=== PATIENT | female | born 1965 | race African-American/Black ===

== ENCOUNTER 2017-02-02 06:48 | Emergency (ER) | payer OTHER ==
[~2017-02-02] VITALS: Ht 165.1 cm; Wt 94.8 kg
--- NOTE | 2017-02-02 07:32 | ED GI/GU/ABDOMINAL COMPLAINT ---
History of Present Illness General Chief Complaint: Abdominal Pain/Flank Pain Stated Complaint: LLQ PAIN Source: patient, old records Exam Limitations: no limitations Vital Signs & Intake/Output Vital Signs & Intake/Output Vital Signs Date Time Temp Pulse Resp B/P B/P Pulse O2 O2 Flow FiO2 Mean Ox Delivery Rate 02/02 1129 80 18 111/72 99 Room Air 02/02 1024 Room Air 02/02 0722 97.2 82 18 129/82 98 Room Air Allergies Coded Allergies: Sulfa (Sulfonamide Antibiotics) (Intermediate, HIVES 02/02/17) Uncoded Allergies: PCN (Intermediate, HIVES 02/02/17) Reconcile Medications Atorvastatin Calcium (Unknown Strength) TABLET (Unknown Dose) PO DAILY CHOLESTEROL (Reported) Ciprofloxacin HCl (Cipro) 250 MG TABLET 1 TAB PO BID DIVERTICULITIS Insulin Glargine,Hum.rec.anlog (Lantus Solostar) 100 UNIT/ML (3 ML) INSULN.PEN 10 UNIT SC QPM DIABETES (Reported) Metformin HCl 1,000 MG TABLET 1 TAB PO BID DIABETES (Reported) Metronidazole (Flagyl) 500 MG TABLET 1 TAB PO BID DIVERTICULITIS Oxycodone HCl/Acetaminophen (Percocet 5-325 MG Tablet) 5 MG-325 MG TABLET 1-2 TAB PO Q6P PRN PAIN Triage Note: C/O LLQ ABDOMINAL PAIN SINCE YESTERDAY AM. DENIES NAUSEA, VOMITING OR DIARRHEA. STATES SHE HAS BEEN URINATING FREQUENTLY. [facility]. Triage Nurses Notes Reviewed? yes ? N Is pt currently ? No HPI: Patient presents with a crampy sensation in her left lower quadrant as well as increased urinary frequency, over and urgency since yesterday. The pain started gradually and has increased to 6 out of 10. There is no nausea or vomiting. There is no radiation of the pain. No aggravating or mitigating factors. She denies any fevers or chills. Past History Travel History Traveled to [place] past 21 day No Medical History Any Pertinent Medical History? see below for history Cardiovascular: hyperlipidemia Endocrine: diabetes Surgical History Surgical History: non-contributory Psychosocial History What is your primary language Frisian Tobacco Use: Never used ETOH Use: denies use Illicit Drug Use: denies illicit drug use Family History Hx Contributory? No Review of Systems Review of Systems Constitutional: Reports: no symptoms. EENTM: Reports: no symptoms. Respiratory: Reports: no symptoms. Cardiovascular: Reports: no symptoms. GI: Reports: see HPI, abdominal pain. Genitourinary: Reports: see HPI, dysuria, frequency, hesitation, urgency. Musculoskeletal: Reports: no symptoms. Skin: Reports: no symptoms. Neurological/Psychological: Reports: no symptoms. Hematologic/Endocrine: Reports: no symptoms. Immunologic/Allergic: Reports: no symptoms. All Other Systems: Reviewed and Negative Physical Exam Physical Exam General Appearance: well developed/nourished, alert, awake, mild distress Head: atraumatic Eyes: Bilateral: PERRL, EOMI. Ears, Nose, Throat, Mouth: hearing grossly normal, moist mucous membrane Neck: normal inspection, supple, full range of motion Respiratory: normal breath sounds, chest non-tender, no respiratory distress, lungs clear Cardiovascular: regular rate/rhythm, normal peripheral pulses Gastrointestinal: normal bowel sounds, soft, no organomegaly, tenderness (LLQ), NO REBOUND OR GUARDING Back: normal inspection, normal range of motion, NO CVA TENDERNESS Extremities: normal range of motion Neurologic/Psych: no motor/sensory deficits, awake, alert, oriented x 3, normal gait, normal mood/affect Skin: intact, normal color, warm/dry Core Measures ACS in differential dx? No Severe Sepsis Present: No Septic Shock Present: No Progress Differential Diagnosis: diverticulitis, kidney stone, UTI/pyelo Plan of Care: Orders Procedure Date/time Status Add-on Test (ER Only) 02/02 0854 Active CULTURE,URINE 02/02 0717 Active URINALYSIS 02/02 0717 Complete HUMAN BETA HCG SCREEN 02/02 0717 Complete COMPREHENSIVE METABOLIC PANEL 02/02 0717 Complete CBC WITHOUT DIFFERENTIAL 02/02 0717 Complete Laboratory Tests 02/02/17 0803: Anion Gap 9, Estimated GFR > 60, BUN/Creatinine Ratio 13.8, Glucose 184 H, Calcium 9.7, Total Bilirubin 1.5 H, AST 18, ALT 33, Alkaline Phosphatase 69, Total Protein 7.5, Albumin 4.3, Globulin 3.2, Albumin/Globulin Ratio 1.3, Total Beta HCG NEGATIVE, CBC w Diff NO MAN DIFF REQ, RBC 4.41, MCV 89.7, MCH 29.3, RDW 13.2, MPV 7.9, Gran % 64.2, Lymphocytes % 28.1, Monocytes % 7.3, Eosinophils % 0.1, Basophils % 0.3, Absolute Granulocytes 4.7, Absolute Lymphocytes 2.0, Absolute Monocytes 0.5, Absolute Eosinophils 0, Absolute Basophils 0, PUBS MCHC 32.7 L, Urinalysis LIGHT H, Urine Color YEL, Urine Clarity HAZY H, Urine pH 6.0, Ur Specific Loring 1.025, Urine Protein TRACE H, Urine Ketones NEG, Urine Nitrite NEG, Urine Bilirubin NEG, Urine Urobilinogen 0.2, Ur Leukocyte Esterase NEG, Ur Microscopic SEDIMENT EXAMINED, Urine RBC 1-3, Urine WBC 3-5 H, Ur Epithelial Cells MANY H, Urine Bacteria MANY H, Urine Mucus FEW, Urine Hemoglobin TRACE-INTACT, Urine Glucose 250 H Microbiology 02/02 717 URINE ROUT: Urine Culture - RECD Diagnostic Imaging: Viewed by Me: CT Scan. Discussed w/RAD: CT Scan. Radiology Impression: PATIENT: JOSE STRATTON PRESENT AGE: 51 PATIENT ACCOUNT NO: [id number] : 67 LOCATION: [facility] ORDERING PHYSICIAN: TATUM GONZALES MD SERVICE DATE: 02/02/17 EXAM TYPE: CAT - CT ABD & PELVIS W/O IV CONTRAS EXAMINATION: CT ABDOMEN AND PELVIS WITHOUT CONTRAST CLINICAL INFORMATION: Left lower quadrant pain. COMPARISON: None TECHNIQUE: Multidetector volumetric imaging was performed from the superior aspect of the liver through the pubic symphysis. Sagittal and coronal reformatted images were obtained on the technologist's workstation. DLP: 930 mGy -cm FINDINGS: LUNG BASES: The visualized lung bases are unremarkable. LIVER, GALLBLADDER, AND BILIARY TREE: The liver is normal in size, shape, and attenuation. No focal hepatic lesion or biliary ductal dilatation is present. Calcifications are seen along the wall of the gallbladder. Given the positioning and appearance, these calcifications appear to be within the wall rather than represent calculi. No definite calculi are seen. No wall thickening or pericholecystic fluid. PANCREAS: Unremarkable. SPLEEN: Unremarkable. ADRENAL GLANDS: Unremarkable. KIDNEYS AND URETERS: The kidneys are normal in size, shape , and attenuation. No hydronephrosis, hydroureter, or calculi seen. No perinephric stranding. BLADDER: Unremarkable. GASTROINTESTINAL TRACT: The stomach and small bowel are unremarkable. No dilated loops of bowel or evidence of obstruction. There is colonic diverticulosis. There is wall thickening at the distal descending colon with associated adjacent inflammatory change, consistent with diverticulitis. Normal appendix. No free air or free fluid. ABDOMINAL WALL: No significant hernia is appreciated. LYMPH NODES: Normal. VASCULAR: Scattered atherosclerotic calcification. PELVIC VISCERA: The uterus and adnexa are unremarkable. OSSEOUS STRUCTURES: No acute or suspicious osseous abnormality. Degenerative changes of the spine. IMPRESSION: 1. Diverticulitis of the distal descending colon. No free air or fluid collection. 2. Gallbladder wall calcifications. 3. No hydronephrosis or nephrolithiasis. DICTATED BY: TOMAS ARIAS,TARAS DATE/TIME DICTATED:02/02/171022 SPRING REPAIRER HELPER HAND: BARB DATE/TIME TRANSCRIBED:02/02/171022 CONFIDENTIAL, DO NOT COPY WITHOUT APPROPRIATE AUTHORIZATION. <Electronically signed in Other Vendor System> SIGNED BY: TOMAS ARIAS,TARAS 02/02/17 1030 Initial ED EKG: none Comments: Laboratory data and CAT scan results were discussed with the patient. Patient given a dose of IV antibiotics and then will be stable for discharge. Patient promises to return if the pain worsens, she begins vomiting or for any concerns. Departure Departure Disposition: HOME OR SELF CARE Condition: Stable Clinical Impression Primary Impression: Diverticulitis Referrals: PATIENT HAS NO PRIMARY CARE DR (PCP/Family) Additional Instructions: Return if symptoms worsen, you began vomiting or for any concerns. Departure Forms: Customer Survey General Discharge Information Prescriptions: Current Visit Scripts Ciprofloxacin HCl (Cipro) 1 TAB PO BID #14 TAB Metronidazole (Flagyl) 1 TAB PO BID #14 TAB Oxycodone HCl/Acetaminophen (Percocet 5-325 MG Tablet) 1-2 TAB PO Q6P PRN PAIN #20 TAB
[2017-02-02 08:36] LABS: ABSOLUTE BASOPHIL COUNT 0 /CUMM (0.0-0.2); ABSOLUTE EOSINOPHIL COUNT 0 /CUMM (0.0-0.7); ABSOLUTE GRANULOCYTE CT 4.7 /CUMM (1.4-6.5); ABSOLUTE MONOCYTE COUNT 0.5 /CUMM (0.10-0.60); BASOPHIL % 0.3 % (0.0-2.0); EOSINOPHIL % 0.1 % (0-5); GRANULOCYTE % 64.2 % (42.2-75.2); HEMATOCRIT 39.6 % (37-47); MEAN CORPUSCULAR HGB 29.3 PG (27.0-31.0); MEAN CORPUSCULAR HGB CONC 32.7 G/DL (33.0-37.0); MEAN CORPUSCULAR VOLUME 89.7 FL (81.0-99.0); MEAN PLATELET VOLUME 7.9 FL (7.4-10.4); PLATELET COUNT 291 /CUMM (130-400); RBC DISTRIBUTION WIDTH 13.2 % (11.5-14.5); RED BLOOD CELL CT 4.41 /CUMM (4.20-5.40); WHITE BLOOD CELL COUNT 7.3 /CUMM (4.8-10.8)
[2017-02-02] MEDS ORDERED: METFORMIN HCL1000 M1 PO (08:57)
[2017-02-02] MEDS ORDERED: ATORVASTATIN CA20 M1 PO (08:58)
[2017-02-02] MEDS ORDERED: LANTUS SOL100 UNIT/1 SC (08:58)
--- NOTE | 2017-02-02 10:30 | CT SCAN REPORT ---
EXAMINATION: CT ABDOMEN AND PELVIS WITHOUT CONTRAST CLINICAL INFORMATION: Left lower quadrant pain. COMPARISON: None TECHNIQUE: Multidetector volumetric imaging was performed from the superior aspect of the liver through the pubic symphysis. Sagittal and coronal reformatted images were obtained on the technologist's workstation. DLP: 930 mGy-cm FINDINGS: LUNG BASES: The visualized lung bases are unremarkable. LIVER, GALLBLADDER, AND BILIARY TREE: The liver is normal in size, shape, and attenuation. No focal hepatic lesion or biliary ductal dilatation is present. Calcifications are seen along the wall of the gallbladder. Given the positioning and appearance, these calcifications appear to be within the wall rather than represent calculi. No definite calculi are seen. No wall thickening or pericholecystic fluid. PANCREAS: Unremarkable. SPLEEN: Unremarkable. ADRENAL GLANDS: Unremarkable. KIDNEYS AND URETERS: The kidneys are normal in size, shape, and attenuation. No hydronephrosis, hydroureter, or calculi seen. No perinephric stranding. BLADDER: Unremarkable. GASTROINTESTINAL TRACT: The stomach and small bowel are unremarkable. No dilated loops of bowel or evidence of obstruction. There is colonic diverticulosis. There is wall thickening at the distal descending colon with associated adjacent inflammatory change, consistent with diverticulitis. Normal appendix. No free air or free fluid. ABDOMINAL WALL: No significant hernia is appreciated. LYMPH NODES: Normal. VASCULAR: Scattered atherosclerotic calcification. PELVIC VISCERA: The uterus and adnexa are unremarkable. OSSEOUS STRUCTURES: No acute or suspicious osseous abnormality. Degenerative changes of the spine. IMPRESSION: 1. Diverticulitis of the distal descending colon. No free air or fluid collection. 2. Gallbladder wall calcifications. 3. No hydronephrosis or nephrolithiasis.
[2017-02-02] MEDS ORDERED: CIPRO250 M1 PO (11:07)
[2017-02-02] MEDS ORDERED: FLAGYL500 MG PO (11:07)
[2017-02-02] MEDS ORDERED: PERCOCET 5-3251 EACH PO (11:07)
[2017-02-02 11:29] VITALS: BP 111/72
== END 2017-02-02 11:30 ==
LOC: ERH 06:48
PROVIDERS: Emergency Medicine
DX: K57.92 Diverticulitis of intestine, part unspecified, without perforation or abscess without bleeding (principal)
CPT/HCPCS: 74176; 81001; 87086; 96361; 96374; J1885

== ENCOUNTER 2018-03-18 15:56 | Emergency (ER) | payer OTHER ==
[~2018-03-18] VITALS: Ht 165.1 cm; Wt 94.8 kg
[~2018-03-18 15:56] MED LIST: ATORVASTATIN CA20 M1 PO; ATORVASTATIN CA40 M1 PO; BENZONATATE200 M1 PO; CIPRO250 M1 PO; FLAGYL500 MG PO; IBUPROFEN800 M1 PO; LANTUS SOL100 UNIT/1 SC; METFORMIN HCL1000 M1 PO; PERCOCET 5-3251 EACH PO; PROVENTIL HFA6.7 GM INH; TAMIFLU75 M1 PO
[2018-03-18 16:28] LABS: ABSOLUTE BASOPHIL COUNT 0 /CUMM (0.0-0.2); ABSOLUTE EOSINOPHIL COUNT 0 /CUMM (0.0-0.7); ABSOLUTE GRANULOCYTE CT 6.5 /CUMM (1.4-6.5); ABSOLUTE LYMPH COUNT 3.3 /CUMM (1.2-3.4); ABSOLUTE MONOCYTE COUNT 0.6 /CUMM (0.10-0.60); BASOPHIL % 0.2 % (0.0-2.0); EOSINOPHIL % 0.2 % (0-5); GRANULOCYTE % 62.3 % (42.2-75.2); HEMATOCRIT 41.3 % (37-47); MEAN CORPUSCULAR HGB 28.9 PG (27.0-31.0); MEAN CORPUSCULAR HGB CONC 32.7 G/DL (33.0-37.0); MEAN CORPUSCULAR VOLUME 88.6 FL (81.0-99.0); MEAN PLATELET VOLUME 7.5 FL (7.4-10.4); PLATELET COUNT 329 /CUMM (130-400); RBC DISTRIBUTION WIDTH 13.6 % (11.5-14.5); RED BLOOD CELL CT 4.66 /CUMM (4.20-5.40); WHITE BLOOD CELL COUNT 10.4 /CUMM (4.8-10.8)
[2018-03-18] MEDS ORDERED: METFORMIN HCL500 M4 PO (18:31)
[2018-03-18] MEDS ORDERED: NYSTATIN15 G1 TOP (18:32)
--- NOTE | 2018-03-18 20:27 | ED GI/GU/ABDOMINAL COMPLAINT ---
History of Present Illness General Chief Complaint: Abdominal Pain/Flank Pain Stated Complaint: LOWER LEFT SIDED ABD PAIN Source: patient Exam Limitations: no limitations Vital Signs & Intake/Output Vital Signs & Intake/Output Vital Signs Date Time Temp Pulse Resp B/P B/P Pulse O2 O2 Flow FiO2 Mean Ox Delivery Rate 03/18 2304 96.0 79 18 137/81 96 Room Air 03/18 2107 98.2 90 16 152/78 97 Room Air 03/18 1826 98.5 84 18 133/69 100 Room Air 03/18 1805 Room Air 03/18 1609 98.2 87 18 156/106 98 Room Air ED Intake and Output 03/19 0000 03/18 1200 Intake Total Output Total Balance Patient 209 lb Weight Allergies Coded Allergies: Sulfa (Sulfonamide Antibiotics) (Intermediate, HIVES 07/09/17) Penicillins (hives 03/18/18) tramadol (UPSET STOMACH 03/18/18) Reconcile Medications Atorvastatin Calcium 40 MG TABLET 1 TAB PO DAILY CHOLESTROL (Reported) Ciprofloxacin HCl (Cipro) 500 MG TABLET 1 TAB PO BID diverticuloitis Insulin Glargine,Hum.rec.anlog (Lantus Solostar) 100 UNIT/ML (3 ML) INSULN.PEN 10 UNIT SC QPM DIABETES (Reported) Metformin HCl (Metformin HCl ER) 500 MG TAB.ER.24H 2 TAB PO BID DM (Reported) Metronidazole (Flagyl) 500 MG TABLET 1 TAB PO TID DIVERTICULITIS Nystatin 100,000 UNIT/GRAM CREAM..G. 1 HATTIE TOP BID BUTTOCKS (Reported) apply to affected area(s) Ondansetron (Zofran Odt) 4 MG TAB.RAPDIS 1 TAB SL TID NAUSEA Oxycodone HCl/Acetaminophen (Percocet 5-325 MG Tablet) 5 MG-325 MG TABLET 1-2 TAB PO BID PAIN Triage Note: LLQ ABD PAIN SINCE YESTERDAY AM, CONSTANT WITH PERIODS OF EXACERBATION. REPORTS IT HAS BEEN WORSENING. DENIES BLACK OR BLOODY STOOLS. +N/-V. AFEBRILE. PAIN 06/30 Triage Nurses Notes Reviewed? yes ? N Is pt currently ? No Onset: Abrupt Duration: day(s): Timing: recent history Quality/Severity: moderate, sharpness, severe Location: left lower quadrant Radiation: no radiation Activities at Onset: none No Modifying Factors: none HPI: 52-year-old female comes into the emergency room complaints of left lower abdominal pain. She denies any fever chills vomiting but some associated nausea. Denies any changes in bowel movement or blood in her stool. Some mild burning at times with urination. She comes in for further evaluation. Nothing seems to make the symptoms better. (Blair Rivas) Past History Travel History Traveled to [place] past 21 day No Medical History Any Pertinent Medical History? see below for history Neurological: NONE EENT: NONE Cardiovascular: hyperlipidemia Respiratory: NONE Gastrointestinal: NONE Hepatic: NONE Renal: NONE Musculoskeletal: NONE Psychiatric: NONE Endocrine: diabetes Surgical History Surgical History: non-contributory Psychosocial History What is your primary language Ukrainian Tobacco Use: Never used ETOH Use: denies use Illicit Drug Use: denies illicit drug use Family History Hx Contributory? No (Blair Rivas) Review of Systems Review of Systems Constitutional: Reports: no symptoms. EENTM: Reports: no symptoms. Respiratory: Reports: no symptoms. Cardiovascular: Reports: no symptoms. GI: Reports: see HPI. Genitourinary: Reports: see HPI. Musculoskeletal: Reports: no symptoms. Skin: Reports: no symptoms. Neurological/Psychological: Reports: no symptoms. Hematologic/Endocrine: Reports: no symptoms. Immunologic/Allergic: Reports: no symptoms. All Other Systems: Reviewed and Negative (Blair Rivas) Physical Exam Physical Exam General Appearance: well developed/nourished, no apparent distress, alert, awake Head: atraumatic Eyes: Bilateral: normal appearance. Ears, Nose, Throat, Mouth: hearing grossly normal, moist mucous membrane Neck: normal inspection Respiratory: no respiratory distress Cardiovascular: regular rate/rhythm Gastrointestinal: soft, tenderness (LLQ, ), NO GUARDING/REBOUND TENDERNESS Back: normal inspection Extremities: normal range of motion Neurologic/Psych: awake, alert, oriented x 3 Skin: intact, normal color Core Measures ACS in differential dx? No Sepsis Present: No Sepsis Focused Exam Completed? No (Blair Rivas) Progress Differential Diagnosis: appendicitis, biliary colic, bowel obstruction, cholecystitis, diverticulitis, gastritis, kidney stone, SBO, UTI/pyelo Plan of Care: Orders Procedure Date/time Status URINALYSIS 03/18 1607 Complete TROPONIN LEVEL 03/18 1607 Complete LIPASE 03/18 1607 Complete COMPREHENSIVE METABOLIC PANEL 03/18 1607 Complete CBC WITHOUT DIFFERENTIAL 03/18 1607 Complete Laboratory Tests 03/18/18 2035: Urine Color YEL, Urine Clarity CLEAR, Urine pH 6.0, Ur Specific Powell >= 1.030 , Urine Protein NEG, Urine Ketones NEG, Urine Nitrite NEG, Urine Bilirubin NEG, Urine Urobilinogen 0.2, Ur Leukocyte Esterase NEG, Ur Microscopic EXAM NOT REQUIRED, Urine Hemoglobin NEG, Urine Glucose NEG 03/18/18 1615: Anion Gap 12, Estimated GFR 53 L, BUN/Creatinine Ratio 11.8, Glucose 172 H, Calcium 9.9, Total Bilirubin 1.1, AST 19, ALT 40, Alkaline Phosphatase 81, Troponin I < 0.01, Total Protein 7.7, Albumin 4.4, Globulin 3.3, Albumin/ Globulin Ratio 1.3, Lipase 73, CBC w Diff NO MAN DIFF REQ, RBC 4.66, MCV 88.6, MCH 28.9, MCHC 32.7 L, RDW 13.6, MPV 7.5, Gran % 62.3, Lymphocytes % 31.9, Monocytes % 5.4, Eosinophils % 0.2, Basophils % 0.2, Absolute Granulocytes 6.5, Absolute Lymphocytes 3.3, Absolute Monocytes 0.6, Absolute Eosinophils 0, Absolute Basophils 0 Diagnostic Imaging: Viewed by Me: CT Scan. Discussed w/RAD: CT Scan. Radiology Impression: PATIENT: JOSE STRATTON PRESENT AGE: 52 PATIENT ACCOUNT NO: [id number] : 67 LOCATION: [facility] ORDERING PHYSICIAN: John Paul DAVIS SERVICE DATE: 03/18/18 EXAM TYPE: CAT - CT ABD & PELVIS W IV CONTRAST EXAMINATION: CT ABDOMEN AND PELVIS WITH CONTRAST CLINICAL INFORMATION: Abdominal pain. COMPARISON: 02/02/2017 CT scan. TECHNIQUE: Multidetector volumetric imaging was performed of the abdomen and pelvis following IV administration of 95 mL of Optiray 320 intravenous contrast. Sagittal and coronal reformatted images were obtained on the technologist's workstation. DLP: 1169.72 mGy-cm FINDINGS: LUNG BASES: The visualized lung bases are unremarkable. LIVER, GALLBLADDER, AND BILIARY TREE: The liver is normal in size, shape, and attenuation. There is mild dilatation of intrahepatic bile ducts. The CBD is also prominent, measures about 12 mm at the level of head of pancreas. No radiodense CBD stone is seen. There is also mild prominence of the main pancreatic duct. The gallbladder is distended. Linear calcifications of the gallbladder wall represent porcelain gallbladder. There is no CT evidence of acute cholecystitis. PANCREAS: Mild prominence of the main pancreatic duct up to 4 mm in transverse diameter is noted. This is a new finding. No definite pancreatic mass is seen. No peripancreatic inflammatory change. SPLEEN: Unremarkable. ADRENAL GLANDS: Unremarkable. KIDNEYS AND URETERS: The kidneys are normal in size, shape, and attenuation. No hydronephrosis, hydroureter, or calculi seen. No perinephric stranding. BLADDER: The urinary bladder is empty. GASTROINTESTINAL TRACT: The stomach, duodenum and small bowel loops are unremarkable. Diverticular disease of the colon noted. There is moderate pericolonic fat stranding in the region of distal descending colon, adjacent to multiple diverticuli. The findings represent acute diverticulitis. There is no pericolonic fluid collection or CT sign of microperforation. No free fluid in the abdomen or pelvis. No intra-abdominal free air. The appendix is visualized and without evidence of acute appendicitis. ABDOMINAL WALL: No significant hernia is appreciated. LYMPH NODES: Normal. VASCULAR: Unremarkable. PELVIC VISCERA: The uterus and adnexa are unremarkable. OSSEOUS STRUCTURES: Unremarkable. IMPRESSION: 1. Acute diverticulitis of distal descending colon without evidence of perforation or pericolonic collection. 2. Porcelain gallbladder. 3. Mild dilatation of the intrahepatic bile ducts, CBD and the main pancreatic duct without evidence of radiodense CBD stone. Possibility of an obstructing lesion at the level of the ampulla of Vater is not excluded. Further clinical evaluation and, if indicated, ERCP or MRCP is suggested. DICTATED BY: Yary Manuel MD DATE/TIME DICTATED:03/18/182155 SECURITY SERVICES SPECIALIST:BARB DATE/TIME TRANSCRIBED:03/18/182155 CONFIDENTIAL, DO NOT COPY WITHOUT APPROPRIATE AUTHORIZATION. <Electronically signed in Other Vendor System> SIGNED BY: Yary Manuel MD 03/18/18 7619 Initial ED EKG: none (Blair Rivas) Departure Departure Disposition: HOME OR SELF CARE Condition: Stable Clinical Impression Primary Impression: Acute diverticulitis Referrals: Unknown (PCP/Family) Additional Instructions: Take ciprofloxacin and Flagyl as prescribed. Follow-up with primary care doctor. Follow-up with acute care occupational therapist provided. Clear liquid diet for the next 24 hours. Return if any other concerns. Denies any fever chills vomiting increased pain. Please go over all results of today's visit with your primary care doctor. Contact your primary care doctor to let them know you were here in the emergency room. There may be nonspecific findings which may not be related to your visit today here in the emergency room but may require further evaluation and chronic monitoring by your primary care doctor. If you had a laceration today the chance of foreign body always remains. You should follow-up with your primary care doctor for recheck in 3-5 days for a wound check. If you had an x-ray done there is a chance that a fracture could have been missed on initial read and you should follow-up with your primary care doctor for repeat x-rays if symptoms persist. If your blood pressure was elevated here in the emergency room please have rechecked by [facility] primary care doctor within the next 48. If you were prescribed a narcotic here in the emergency room or any type of controlled substances you're not allowed to drive while taking this medication or operate any type of heavy machinery. Narcotics can make you feel lightheaded dizziness nausea and can cause constipation. You may need to pick up truck driver a stool softener. Thank you for choosing [facility] emergency room. Please return to the emergency room immediately if you have any other concerns worsening of symptoms. Departure Forms: Customer Survey General Discharge Information Prescriptions: Current Visit Scripts Ciprofloxacin HCl (Cipro) 1 TAB PO BID #20 TAB Metronidazole (Flagyl) 1 TAB PO TID #30 TAB Ondansetron (Zofran Odt) 1 TAB SL TID #10 TAB Oxycodone HCl/Acetaminophen (Percocet 5-325 MG Tablet) 1-2 TAB PO BID #10 TAB Comments 03/19/2018 9:07:34 AM Patient currently has no abdominal pain and right upper quadrant. No suspicion for any type of acute gallbladder issue despite the common bile ducts being slightly dilated on the CT scan. Normal liver function tests. Symptoms most consistent with diverticulitis. Follow-up with PCP. NO Evidence of perforation or abscess. Afebrile. Started on oral antibiotics. Referred to a acute care occupational therapist. (Blair Rivas) PA/DETAIL MAKER AND FITTER Co-Sign Statement Statement: ED Attending supervision documentation- [x] I have reviewed the ED Record and agree with the PA's/DETAIL MAKER AND FITTER's documentation. (Shara ARIAS,Adán Brantley)
--- NOTE | 2018-03-18 22:32 | CT SCAN REPORT ---
EXAMINATION: CT ABDOMEN AND PELVIS WITH CONTRAST CLINICAL INFORMATION: Abdominal pain. COMPARISON: 02/02/2017 CT scan. TECHNIQUE: Multidetector volumetric imaging was performed of the abdomen and pelvis following IV administration of 95 mL of Optiray 320 intravenous contrast. Sagittal and coronal reformatted images were obtained on the technologist's workstation. DLP: 1169.72 mGy-cm FINDINGS: LUNG BASES: The visualized lung bases are unremarkable. LIVER, GALLBLADDER, AND BILIARY TREE: The liver is normal in size, shape, and attenuation. There is mild dilatation of intrahepatic bile ducts. The CBD is also prominent, measures about 12 mm at the level of head of pancreas. No radiodense CBD stone is seen. There is also mild prominence of the main pancreatic duct. The gallbladder is distended. Linear calcifications of the gallbladder wall represent porcelain gallbladder. There is no CT evidence of acute cholecystitis. PANCREAS: Mild prominence of the main pancreatic duct up to 4 mm in transverse diameter is noted. This is a new finding. No definite pancreatic mass is seen. No peripancreatic inflammatory change. SPLEEN: Unremarkable. ADRENAL GLANDS: Unremarkable. KIDNEYS AND URETERS: The kidneys are normal in size, shape, and attenuation. No hydronephrosis, hydroureter, or calculi seen. No perinephric stranding. BLADDER: The urinary bladder is empty. GASTROINTESTINAL TRACT: The stomach, duodenum and small bowel loops are unremarkable. Diverticular disease of the colon noted. There is moderate pericolonic fat stranding in the region of distal descending colon, adjacent to multiple diverticuli. The findings represent acute diverticulitis. There is no pericolonic fluid collection or CT sign of microperforation. No free fluid in the abdomen or pelvis. No intra-abdominal free air. The appendix is visualized and without evidence of acute appendicitis. ABDOMINAL WALL: No significant hernia is appreciated. LYMPH NODES: Normal. VASCULAR: Unremarkable. PELVIC VISCERA: The uterus and adnexa are unremarkable. OSSEOUS STRUCTURES: Unremarkable. IMPRESSION: 1. Acute diverticulitis of distal descending colon without evidence of perforation or pericolonic collection. 2. Porcelain gallbladder. 3. Mild dilatation of the intrahepatic bile ducts, CBD and the main pancreatic duct without evidence of radiodense CBD stone. Possibility of an obstructing lesion at the level of the ampulla of Vater is not excluded. Further clinical evaluation and, if indicated, ERCP or MRCP is suggested.
[2018-03-18] MEDS ORDERED: PERCOCET 5-3251 EACH PO (22:43)
[2018-03-18] MEDS ORDERED: CIPRO500 M1 PO (22:43)
[2018-03-18] MEDS ORDERED: FLAGYL500 MG PO (22:43)
[2018-03-18] MEDS ORDERED: ZOFRAN ODT4 M1 SL (22:43)
[2018-03-18 23:04] VITALS: BP 137/81
== END 2018-03-18 23:14 ==
LOC: ERH 15:56
PROVIDERS: Physician Assistant Medical
DX: K57.92 Diverticulitis of intestine, part unspecified, without perforation or abscess without bleeding (principal)
CPT/HCPCS: 74177; 81003; 96374; 96375; 96376; J1885; J2405

== ENCOUNTER 2018-04-29 10:44 | Emergency (ER) | payer OTHER ==
[~2018-04-29] VITALS: Ht 165.1 cm; Wt 94.8 kg
[~2018-04-29 10:44] MED LIST changes: +CIPRO500 M1 PO; +METFORMIN HCL500 M4 PO; +NYSTATIN15 G1 TOP; +ZOFRAN ODT4 M1 SL
--- NOTE | 2018-04-29 11:01 | ED GENERAL ADULT ---
History of Present Illness General Chief Complaint: General Adult Stated Complaint: UPPER AND LOWER BACK PAIN, X 3 DAYS Source: patient, old records Exam Limitations: no limitations Vital Signs & Intake/Output Vital Signs & Intake/Output Vital Signs Date Time Temp Pulse Resp B/P B/P Pulse O2 O2 Flow FiO2 Mean Ox Delivery Rate 04/29 1230 98.6 98 18 148/80 99 Room Air 04/29 1104 Room Air 04/29 1048 98.6 103 18 152/85 98 Room Air Allergies Coded Allergies: Sulfa (Sulfonamide Antibiotics) (Intermediate, HIVES 07/09/17) Penicillins (hives 03/18/18) tramadol (UPSET STOMACH 03/18/18) Reconcile Medications Atorvastatin Calcium 40 MG TABLET 1 TAB PO DAILY CHOLESTROL (Reported) Ciprofloxacin HCl (Cipro) 500 MG TABLET 1 TAB PO BID diverticuloitis Cyclobenzaprine HCl 5 MG TABLET 1 TAB PO TIDPRN PRN LOW BACK PAIN / MUSCLE SPASM Ibuprofen 800 MG TABLET 1 TAB PO TID PRN LOW BACK PAIN Insulin Glargine,Hum.rec.anlog (Lantus Solostar) 100 UNIT/ML (3 ML) INSULN.PEN 10 UNIT SC QPM DIABETES (Reported) Metformin HCl (Metformin HCl ER) 500 MG TAB.ER.24H 2 TAB PO BID DM (Reported) Metronidazole (Flagyl) 500 MG TABLET 1 TAB PO TID DIVERTICULITIS Nystatin 100,000 UNIT/GRAM CREAM..G. 1 HATTIE TOP BID BUTTOCKS (Reported) apply to affected area(s) Ondansetron (Zofran Odt) 4 MG TAB.RAPDIS 1 TAB SL TID NAUSEA Oxycodone HCl/Acetaminophen (Percocet 5-325 MG Tablet) 5 MG-325 MG TABLET 1-2 TAB PO BID PAIN Triage Note: 52 YO FEMALE TO TRIAGE FOR EVAL OF LOWER AND UPPER BACK SINCE MONDAY. UNSURE IF INJURY OCCURED TO BACK. STATES HAS BEEN USING TOPICAL PAIN CREAMS WITHOUT RELIEF. STATES URINE IS MORE FREQUENT THEN USUAL, DENIES BURNING/PAIN WITH URINATION. Triage Nurses Notes Reviewed? yes HPI: 52-year-old woman with past medical history of diabetes mellitus seen for evaluation of low back pain. 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 Patient reports that this past she awoke with a severe low back pain that his dramatically limited her abilities. She describes it as a severe 10/10 pain at her belt line described as dull radiating to her both legs. She denies any inciting injury. This is never happened to her before. She denies any bowel/bladder incontinence. She applied a heat pad to the area with minimal pain relief and has not taken any NSAID medications. She otherwise denies any fever, chills, chest pain, shortness of breath, abdominal pain, urinary complaints. (Michael Mills MD) Past History Travel History Traveled to [place] past 21 day No Medical History Any Pertinent Medical History? see below for history Neurological: NONE EENT: NONE Cardiovascular: hyperlipidemia Respiratory: NONE Gastrointestinal: diverticulitis, porcelan gallbladder Hepatic: NONE Renal: NONE Musculoskeletal: NONE Psychiatric: NONE Endocrine: diabetes Surgical History Surgical History: non-contributory Psychosocial History What is your primary language Thai Tobacco Use: Never used Family History Hx Contributory? No (Michael Mills MD) Review of Systems Review of Systems Constitutional: Reports: see HPI. (Michael Mills MD) Physical Exam Physical Exam General Appearance: well developed/nourished, no apparent distress, alert, awake , comfortable Comments: General - well developed, obese middle-aged -[place] woman in no acute distress HEENT - NCAT, PERRL, EOMI, anicteric sclera Neck- Supple, no JVD/HJR, no bruits, trachea midline Cardio - S1, S2 w/o murmurs/gallops/rubs; regular rate and rhythm Resp - Clear to auscultation bilaterally GI - Soft, nontender, nondistended, bowel sounds present, Limon sign negative -no CVA/suprapubic tenderness Back-mild mid thoracic point tenderness, no paraspinal tenderness, moderate low back muscle spasm Neuro - Awake and alert, CN II - XII grossly intact, strength 5/54, straight leg test negative 2, sensation/coordination intact in lower extremities, gait intact Extremities - No edema, pulses intact Core Measures ACS in differential dx? No CVA/TIA Diagnosis: No Sepsis Present: No Sepsis Focused Exam Completed? No (Michael Mills MD) Progress Differential Diagnoses I considered the following diagnoses in my evaluation of the patient: Lumbosacral strain, disc herniation, cauda equina syndrome, compression fracture Plan of Care: Orders Procedure Date/time Status URINALYSIS 04/29 1103 Complete LACTIC ACID 04/29 1103 Complete COMPREHENSIVE METABOLIC PANEL 04/29 1103 Complete CBC WITHOUT DIFFERENTIAL 04/29 1103 Complete Laboratory Tests 04/29/18 1140: Anion Gap 10, Estimated GFR 59 L, BUN/Creatinine Ratio 10.0, Glucose 209 H, Lactic Acid 1.2, Calcium 10.2, Total Bilirubin 1.2, AST 20, ALT 33, Alkaline Phosphatase 76, Total Protein 7.8, Albumin 4.7, Globulin 3.1, Albumin/Globulin Ratio 1.5, CBC w Diff NO MAN DIFF REQ, RBC 4.77, MCV 88.9, MCH 28.9, MCHC 32.5 L, RDW 13.4, MPV 7.7, Gran % 47.5, Lymphocytes % 45.3, Monocytes % 6.7, Eosinophils % 0.2, Basophils % 0.3, Absolute Granulocytes 3.1, Absolute Lymphocytes 2.9, Absolute Monocytes 0.4, Absolute Eosinophils 0, Absolute Basophils 0 04/29/18 1130: Urine Color YEL, Urine Clarity HAZY H, Urine pH 6.0, Ur Specific [place] >= 1.030, Urine Protein TRACE H, Urine Ketones NEG, Urine Nitrite NEG, Urine Bilirubin NEG, Urine Urobilinogen 0.2, Ur Leukocyte Esterase SMALL H, Ur Microscopic SEDIMENT EXAMINED, Urine RBC RARE, Urine WBC 5-10 H, Ur Epithelial Cells MOD H, Urine Bacteria MOD H, Urine Mucus MOD H, Urine Hemoglobin TRACE- LYSED, Urine Glucose 250 H Initial ED EKG: none Comments: Patient with low back pain of unclear etiology. Vital signs are significant for mildly elevated heart rate and blood pressure. Physical examination demonstrates normal cardiopulmonary examination with a soft nontender nondistended abdomen and mid thoracic spine tenderness with negative straight leg test 2. Labs including CBC, serum chemistry, and urinalysis were unremarkable. Patient was medicated with oral ibuprofen resulting in improvement of her pain. Clinically patient appears to have lumbosacral strain for which she is encouraged to take ibuprofen and muscle relaxers as needed. (Michael Mills MD) Departure Departure Disposition: HOME OR SELF CARE Condition: Stable Clinical Impression Primary Impression: Lumbosacral strain Referrals: Patient Has No Primary Care Dr (PCP/Family) Additional Instructions: Take ibuprofen and cyclobenzaprine as directed/as needed for low back pain. Avoid drinking alcohol while taking these medications. Be sure to drink enough water with these medications. Do not drive or operate heavy machinery while you are taking cyclobenzaprine until you know how it affects you. Call 911 or return to the ED should your symptoms worsen or if you develop symptoms such as numbness, tingling, or weakness of her lower extremities or bowel/bladder incontinence. Schedule appointment with your plastics repairer for further evaluation of your gallbladder findings on your previous CAT scan. Departure Forms: Customer Survey General Discharge Information Prescriptions: Current Visit Scripts Ibuprofen 1 TAB PO TID PRN LOW BACK PAIN #30 TAB Cyclobenzaprine HCl 1 TAB PO TIDPRN PRN LOW BACK PAIN / MUSCLE SPASM #30 TAB (Michael Mills MD) Resident Co-Sign Statement Statement: ED Attending supervision documentation- I saw and evaluated the patient. I have also reviewed all the pertinent lab results and diagnostic results. I agree with the findings and the plan of care as documented in the Resident's documentation. x I have reviewed the ED Record and agree with the Resident's documentation. [] Additions or exceptions (if any) to the Resident's note and plan are summarized below: [] (Erfain Mendez MD) Critical Care Note Critical Care Note Critical Care Time: non-applicable (Michael Mills MD)
[2018-04-29 12:04] LABS: ABSOLUTE BASOPHIL COUNT 0 /CUMM (0.0-0.2); ABSOLUTE EOSINOPHIL COUNT 0 /CUMM (0.0-0.7); ABSOLUTE GRANULOCYTE CT 3.1 /CUMM (1.4-6.5); ABSOLUTE LYMPH COUNT 2.9 /CUMM (1.2-3.4); ABSOLUTE MONOCYTE COUNT 0.4 /CUMM (0.10-0.60); BASOPHIL % 0.3 % (0.0-2.0); EOSINOPHIL % 0.2 % (0-5); GRANULOCYTE % 47.5 % (42.2-75.2); HEMATOCRIT 42.4 % (37-47); MEAN CORPUSCULAR HGB 28.9 PG (27.0-31.0); MEAN CORPUSCULAR HGB CONC 32.5 G/DL (33.0-37.0); MEAN CORPUSCULAR VOLUME 88.9 FL (81.0-99.0); MEAN PLATELET VOLUME 7.7 FL (7.4-10.4); PLATELET COUNT 351 /CUMM (130-400); RBC DISTRIBUTION WIDTH 13.4 % (11.5-14.5); RED BLOOD CELL CT 4.77 /CUMM (4.20-5.40); WHITE BLOOD CELL COUNT 6.4 /CUMM (4.8-10.8)
[2018-04-29] MEDS ORDERED: CYCLOBENZAPRINE5 M2 PO (12:22)
[2018-04-29] MEDS ORDERED: IBUPROFEN800 M1 PO (12:22)
[2018-04-29 12:30] VITALS: BP 148/80
== END 2018-04-29 12:30 ==
LOC: ERH 10:44
PROVIDERS: Internal Medicine Interventional Cardiology
DX: S39.012A Strain of muscle, fascia and tendon of lower back, initial encounter (principal); X58.XXXA Exposure to other specified factors, initial encounter; Y92.9 Unspecified place or not applicable; Y93.9 Activity, unspecified; E78.5 Hyperlipidemia, unspecified; E11.9 Type 2 diabetes mellitus without complications; Z79.84 Long term (current) use of oral hypoglycemic drugs
CPT/HCPCS: 81001